=== PATIENT | male | born 1955 | race Caucasian/White ===

== ENCOUNTER 2016-11-09 05:20 | Emergency (ER) | payer MEDICAID ==
[2016-11-09] MEDS ORDERED: METHYLPRED SOD SUCC 125 MG/2 ML VIAL ONE (05:53)
[2016-11-09] MEDS ORDERED: DIPHENHYDRAMINE 50 MG/ML VIAL ONE (05:53)
[2016-11-09] MEDS ORDERED: FAMOTIDINE 20 MG INJ ONE (05:54)
[2016-11-09] MEDS ORDERED: NEB-ALBUTEROL 2.5 MG/3 ML INH ONE (06:06)
== END 2016-11-09 07:25 | disposition home or self-care (01) ==
LOC: ER 05:20
DX: T78.49XA Other allergy, initial encounter (principal); X58.XXXA Exposure to other specified factors, initial encounter; R21 Rash and other nonspecific skin eruption; T78.3XXA Angioneurotic edema, initial encounter; Z79.899 Other long term (current) drug therapy; F17.210 Nicotine dependence, cigarettes, uncomplicated
CPT/HCPCS: 94640; 96374; 96375